=== PATIENT | female | born 1965 | race Caucasian/White ===

== ENCOUNTER 2019-05-01 14:20 | Inpatient (IN) | payer OTHER ==
--- NOTE | 2019-05-01 14:31 | PDOC ---
Rapid Medical Evaluation Chief Complaint: Chronic pain Time Seen by Provider: 05/01/19 14:27 Medical Evaluation: 05/01/19 14:27 I have performed a brief in-person evaluation of this patient. The patient presents with a chief complaint of:foot pain and neurologist wishes MRI/ to r/o MS exacerbation Pertinent physical exam findings: amb with no limp I have ordered the following: nothing The patient will proceed to the ED for further evaluation.
--- NOTE | 2019-05-01 15:57 | PDOC ---
History of Present Illness <Santy Farooq - Last Filed: 05/01/19 17:24> - General History Source: Patient Exam Limitations: No Limitations - History of Present Illness Initial Comments: 05/01/19 15:53 53-year-old female sent over by neurologist Dr. Mirza who recommended patient go to [facility] ER for further evaluation of increasing numbness and paresthesia to bilateral feet radiating to calves and knees. patient refused and decided to come to [facility] emergency room although her MS physician and other specialists are at [facility]. Patient states history of MS, migraines, depression, fibromyalgia, RLS, and antiphospholipid antibodies. Patient was recommended to receive an MRI of the brain, cervical column and thoracic spine with and without gadolinium. Patient denies difficulty breathing, chest pain, shortness of breath, headache, dizziness or visual changes. Timing/Duration: other Severity: mild, moderate Associated Symptoms: reports: weakness <Chasity Esteban - Last Filed: 05/02/19 11:59> - General Chief Complaint: Chronic pain Stated Complaint: SENT BY PCP/FOOT PAIN Time Seen by Provider: 05/01/19 14:27 Past History <Santy Farooq - Last Filed: 05/01/19 17:24> - Travel Traveled outside of the country in the last 30 days: No Close contact w/someone who was outside of country & ill: No - Past Medical History COPD: No GI Disorders: Yes (IBS) Other medical history: JONAH - Psycho Social/Smoking Cessation Hx Smoking History: Never smoked Patient Lives Alone: No Lives with/in: spouse/SO <Chasity Esteban - Last Filed: 05/02/19 11:59> - Past Medical History Allergies/Adverse Reactions: Allergies Allergy/AdvReac Type Severity Reaction Status Date / Time codeine AdvReac Verified 05/01/19 14:31 Home Medications: Ambulatory Orders Vilazodone Hydrochloride [Viibryd] 20 mg PO DAILY 05/01/19 Review of Systems - Review of Systems Able to Perform ROS?: No Is the patient limited Telugu proficient: No Constitutional: No: Symptoms Reported HEENTM: No: Symptoms Reported Respiratory: No: Symptoms reported Cardiac (ROS): No: Symptoms Reported ABD/GI: No: Symptoms Reported : No: Symptoms Reported Musculoskeletal: Yes: Muscle Weakness Neurological: Yes: Numbness, Paresthesia, Weakness Endocrine: No: Symptoms Reported Hematologic/Lymphatic: No: Symptoms Reported <Chaisty Esteban - Last Filed: 05/02/19 11:59> *Physical Exam - Vital Signs Last Vital Signs Temp Pulse Resp BP Pulse Ox 98.2 F 112 H 18 105/69 98 05/01/19 14:26 05/01/19 14:26 05/01/19 14:26 05/01/19 14:26 05/01/19 14:26 <Santy Farooq - Last Filed: 05/01/19 17:24> - Vital Signs Last Vital Signs Temp Pulse Resp BP Pulse Ox 98.2 F 112 H 18 105/69 98 05/01/19 14:26 05/01/19 14:26 05/01/19 14:26 05/01/19 14:26 05/01/19 14:26 - Physical Exam General Appearance: Yes: Nourished, Appropriately Dressed. No: Apparent Distress Neck: positive: Supple Respiratory/Chest: positive: Lungs Clear, Normal Breath Sounds. negative: Respiratory Distress, Accessory Muscle Use Cardiovascular: positive: Regular Rhythm, Regular Rate (Rate 92 on portable monitor). negative: Murmur Gastrointestinal/Abdominal: positive: Soft. negative: Tenderness Extremity: positive: Normal Inspection Integumentary: positive: Normal Color, Moist Neurologic: positive: Motor Strength 5/5 (Ambulatory without limp) <Chasity Esteban - Last Filed: 05/02/19 11:59> Heart Score/ECG Review - ECG Impressions Comment:: 05/01/19 17:24 Twelve-lead EKG was performed and reviewed by me. There is normal sinus rhythm with a normal rate. Rate of 75 The axis is normal. The intervals are normal. There is normal R wave progression There are no ST or T wave abnormalities. Impression: Normal twelve-lead EKG <Santy Farooq - Last Filed: 05/01/19 17:24> ED Treatment Course - LABORATORY CBC & Chemistry Diagram: 05/01/19 16:24 05/01/19 16:24 - ADDITIONAL ORDERS Additional order review: Laboratory Results 05/01/19 05/01/19 16:24 16:24 Sodium 142 Potassium 4.4 Chloride 110 H Carbon Dioxide 25 Anion Gap 7 L BUN 12.0 Creatinine 0.5 L Est GFR (CKD-EPI)AfAm 126.28 Est GFR (CKD-EPI)NonAf 108.96 Random Glucose 102 Calcium 8.9 Magnesium 2.1 Total Bilirubin 0.3 AST 23 ALT 22 Alkaline Phosphatase 79 Total Protein 6.8 Albumin 3.7 05/01/19 16:24 RBC 4.44 MCV 97.1 H MCHC 34.5 RDW 13.2 MPV 7.9 Neutrophils % 50.7 Lymphocytes % 41.9 H Monocytes % 6.2 Eosinophils % 0.5 Basophils % 0.7 <Snaty Farooq - Last Filed: 05/01/19 17:24> - LABORATORY CBC & Chemistry Diagram: 05/02/19 05:55 05/02/19 05:55 <Chasity Esteban - Last Filed: 05/02/19 11:59> Medical Decision Making - Medical Decision Making The patient was seen and evaluated in conjunction with GABRIELLE Esteban under my direct supervision, ancillary studies were reviewed. I independently interviewed and evaluated the patient and I agree with the plan as outlined by GABRIELLE Esteban. <Santy Farooq - Last Filed: 05/01/19 17:24> - Medical Decision Making 05/01/19 15:56 Chief complaint: Weakness and paresthesia to her feet rating to her knees. Patient states history of MS patient followed at [facility] but decided to come to this ED versus recommended [facility] by her neurologist exam: Ambulatory without limp vital signs stable plan: Labs IV and will order MRI as per neurology request <Chasity Esteban - Last Filed: 05/02/19 11:59> Discharge <Santy Farooq - Last Filed: 05/01/19 17:24> - Discharge Information Problems reviewed: Yes <Chasity Esteban - Last Filed: 05/02/19 11:59> - Discharge Information Clinical Impression/Diagnosis: Bilateral leg paresthesia Condition: Stable
--- NOTE | 2019-05-01 16:33 | PDOC ---
*Physical Exam - Vital Signs Last Vital Signs Temp Pulse Resp BP Pulse Ox 98.2 F 112 H 18 105/69 98 05/01/19 14:26 05/01/19 14:26 05/01/19 14:26 05/01/19 14:26 05/01/19 14:26 - Physical Exam 05/01/19 16:32 Sign-out received from outgoing ER provider Eulalia. Pt interviewed and examined. Ancillary studies reviewed. Awaiting EKG, labs, MRI results. 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 Per medical technologist clinical, patient cannot have thoracic spine MRI done until tomorrow given amount of contrast administered. Patient's PCP is Dr. Rosio Briceño, will admit to hospitalist. 05/01/19 20:53 Spoke with admitting resident Rashmi, patient accepted for inpatient admission. ED Treatment Course - LABORATORY CBC & Chemistry Diagram: 05/01/19 16:24 05/01/19 16:24 Discharge - Discharge Information Problems reviewed: Yes Clinical Impression/Diagnosis: Bilateral leg paresthesia Condition: Stable - Admission Yes - Follow up/Referral Referrals: Rosio Briceño MD [Primary Care Provider] - - Patient Discharge Instructions - Post Discharge Activity
[2019-05-01 16:48] LABS: BASO % 0.7 % (0-2.0); EOS % 0.5 % (0-4.5); HEMATOCRIT 43.1 % (32.4-45.2); HEMOGLOBIN 14.9 GM/dL (10.7-15.3); LYMPH % 41.9 % (8-40); MCH 33.5 pg (25.7-33.7); MCHC 34.5 g/dl (32.0-36.0); MEAN CELL VOLUME 97.1 fl (80-96); MEAN PLT VOLUME 7.9 fl (7.5-11.1); MONO % 6.2 % (3.8-10.2); NEUT % 50.7 % (42.8-82.8); PLATELET COUNT 267 K/MM3 (134-434); RBC 4.44 M/mm3 (3.60-5.2); RDW 13.2 % (11.6-15.6); WHITE BLOOD COUNT 6.9 K/mm3 (4.0-10.0)
[2019-05-01 17:12] LABS: ALBUMIN 3.7 g/dl (3.4-5.0); BILIRUBIN,TOTAL 0.3 mg/dL (0.2-1); CALCIUM 8.9 mg/dL (8.5-10.1); CREATININE 0.5 mg/dL (0.55-1.3); POTASSIUM 4.4 mmol/L (3.5-5.1); TOT PROT 6.8 g/dl (6.4-8.2)
--- NOTE | 2019-05-01 20:49 | PN ---
Teaching Attending Note Name of Resident: Eloise Meadows ATTENDING PHYSICIAN STATEMENT I saw and evaluated the patient. I reviewed the resident's note and discussed the case with the resident. I agree with the resident's findings and plan as documented. SUBJECTIVE: Patient is a 53-year-old woman with a PMH of Multiple sclerosis, Migraines, Tobacco use, Depression, Fibromyalgia, RLS, and antiphospholipid antibodies, sent by her neurologist Dr. Mirza to [facility] ER for further evaluation of increasing numbness and paresthesia to bilateral feet radiating to calves and knees. But patient refused and decided to come to [facility] ER although her MS physician and other specialists are at [facility]. Patient was recommended to receive an MRI of the brain, cervical column and thoracic spine with and without gadolinium. Patient denies difficulty breathing , chest pain, shortness of breath, headache, dizziness, fever, chills, nausea, vomiting or visual changes. No recent travels or sick contacts. Denies alcohol, tobacco or illicit drug use. OBJECTIVE: Alert Vital Signs Period Temp Pulse Resp BP Sys/Maciel Pulse Ox Last 24 Hr 98.2 F 112 18 105/69 98 HEENT: No Jaundice, eye redness or discharge, PERRLA, EOMI. Normocephalic, atraumatic. External ears are normal and hearing is grossly intact. No nasal discharge. Neck: Supple, nontender. No palpable adenopathy or thyromegaly. No JVD Chest: Good effort. Clear to auscultation and percussion. Heart: Regular. No S3, rub or murmur Abdomen: Not distended, soft, nontender and no HSM. No rebound or guarding. Normal bowel sounds. Ext: Peripheral pulses intact. No leg edema. Skin: Warm and dry. No petechiae, rash or ecchymosis. Neuro: Alert. Oriented x3. CN 2-12 grossly intact. Sensation diminished in bilateral lower leg area; DTR are symmetric. Psych: Appropriate mood and affect. Good insight. Abnormal Lab Results 05/01/19 05/01/19 16:24 16:24 MCV 97.1 H Lymphocytes % 41.9 H Chloride 110 H Anion Gap 7 L Creatinine 0.5 L ASSESSMENT AND PLAN: 1. Exacerbation of Multiple Sclerosis - Official report of Head and C-spine MRI pending. Urinalysis and CXR pending. Will consult Neurology and contact her PCP/ Neurologist during the day to obtain her medical records - including details of the original MS diagnosis. Will continue comprehensive care for all of patient s comorbid conditions. 2. Tobacco Use Counseled on risks associated with tobacco use. We will provide patient all the necessary assistance to facilitate smoking cessation and prescribe Nicotine patch. 3. DVT prophylaxis - Lovenox 40 mg SQ q 24 hours. 4. Advance directives - Full code
--- NOTE | 2019-05-01 21:29 | HP ---
CHIEF COMPLAINT: BL LE weakness and numbness PCP: Dr. Rosio Briceño Neurosurgery: Dr. Mirza HISTORY OF PRESENT ILLNESS: Patient is a 53 year old female with PMH of MS, migraines, depression, fibromyalgia, RLS, IBS who presents with BL LE neuropathy over the past several weeks. She first began having intermittent numbness and tingling (described as pins and needles) which has now progressed to being constant. Symptoms start in her feet and radiate up to mid-calf. She denies any difficulty with movement or ambulation. Pt denies any other neurologic symptoms. No paresthesias in neck or back, vision changes, fatigue heat sensitivity, dizziness or vertigo, urinary incontinence. Pt was first diagnosed with MS 13 years ago. Flare ups have always consisted of paresthesias, last flare up was 9 years ago. Has never had any opthalmologic issues. She was initially on neurontin and other medications (that she forgets the names of) but has not taken these medications for many year as her MS has been stable. Pt sees Dr. Mirza (neurosurgery) regularly and had an appointment with him today regarding these new symptoms. He sent her to the ED to receive an MRI of brain, c-spine, and thoracic-spine. He requested she go to [facility] (as all of pts doctors are located there), however pt refused and preferred to come to [facility]. In the ED, she received an MRI w/ and w/o gadolineum of her brain and c-spine; however, per oxygen equipment technician, pt cannot have thoracic spine M RI until tomorrow given the amount of contrast that has already been administered. Recent Travel: denies PAST MEDICAL HISTORY: As per HPI PAST SURGICAL HISTORY: Laproscopies for endometriosis Social History: Smokin/2 ppd x8 years Alcohol: recreationally Drugs: denies Allergies codeine Adverse Reaction (Verified 05/01/19 14:31) HOME MEDICATIONS: REVIEW OF SYSTEMS CONSTITUTIONAL: Absent: fever, chills, diaphoresis, generalized weakness, malaise, loss of appetite, weight change HEENT: Absent: rhinorrhea, nasal congestion, throat pain, throat swelling, difficulty swallowing, mouth swelling, ear pain, eye pain, visual changes CARDIOVASCULAR: Absent: chest pain, syncope, palpitations, irregular heart rate, lightheadedness , peripheral edema RESPIRATORY: Absent: cough, shortness of breath, dyspnea with exertion, orthopnea, wheezing, stridor, hemoptysis GASTROINTESTINAL: Absent: abdominal pain, abdominal distension, nausea, vomiting, diarrhea, constipation, melena, hematochezia GENITOURINARY: Absent: dysuria, frequency, urgency, hesitancy, hematuria, flank pain, genital pain MUSCULOSKELETAL: Absent: myalgia, arthralgia, joint swelling, back pain, neck pain SKIN: Absent: rash, itching, pallor HEMATOLOGIC/IMMUNOLOGIC: Absent: easy bleeding, easy bruising, lymphadenopathy, frequent infections ENDOCRINE: Absent: unexplained weight gain, unexplained weight loss, heat intolerance, cold intolerance NEUROLOGIC: focal weakness or paresthesias Absent: headache, dizziness, unsteady gait, seizure, mental status changes, bladder or bowel incontinence PSYCHIATRIC: Absent: anxiety, depression, suicidal or homicidal ideation, hallucinations. PHYSICAL EXAMINATION Vital Signs - 24 hr 05/01/19 14:26 Temperature 98.2 F Pulse Rate 112 H Respiratory 18 Rate Blood Pressure 105/69 O2 Sat by Pulse 98 Oximetry (%) GENERAL: Awake, alert, and fully oriented, in no acute distress. HEAD: Normal with no signs of trauma. EYES: Pupils equal, round and reactive to light, no APDs, extraocular movements intact, sclera anicteric, conjunctiva clear. No lid lag. Normal vision, no visual field defects. On ophthalmoscope examination, did not appreciate any papilledema or hyperemia (good disck margins), no hemorrhages or signs of inflammation. EARS, NOSE, THROAT: Ears normal, nares patent, oropharynx clear without exudates. Moist mucous membranes. NECK: Normal range of motion, supple without lymphadenopathy, JVD, or masses. LUNGS: Breath sounds equal, clear to auscultation bilaterally. No wheezes, and no crackles. No accessory muscle use. HEART: Regular rate and rhythm, normal S1 and S2 without murmur, rub or gallop. ABDOMEN: Soft, nontender, not distended, normoactive bowel sounds, no guarding, no rebound, no masses. No hepatomegaly or splenomegaly. MUSCULOSKELETAL: Normal range of motion at all joints. No bony deformities or tenderness. No CVA tenderness. UPPER EXTREMITIES: 2+ pulses, warm, well-perfused. No cyanosis. No clubbing. No peripheral edema. LOWER EXTREMITIES: 2+ pulses, warm, well-perfused. No calf tenderness. No peripheral edema. NEUROLOGICAL: Cranial nerves II-XII intact. Normal speech. Normal gait. Tingling sensation exacerbated by touch on BL feet. Decreased sensation distal to mid-calf. 5/5 motor PSYCHIATRIC: Cooperative. Good eye contact. Appropriate mood and affect. SKIN: Warm, dry, normal turgor, no rashes or lesions noted, normal capillary refill. Laboratory Results - last 24 hr 05/01/19 16:24 05/01/19 16:24 ASSESSMENT/PLAN: Patient is a 53 year old female with PMH of MS, migraines, depression, fibromyalgia, RLS, IBS who presents with BL LE neuropathy over the past several weeks. #Multiple sclerosis exacerbation MRI brain: No visible demyelinating plaques, no acute intracranial pathology MRI c-spine: mod degenerative disc disease C5-C7 w/spondylosis. BL neural outlet encroachment at C5-6. No significant spinal stenosis. No abnormal signals. F/u thoracic and lumbar MRI 24 hours post brain and c-spine imaging Neurology consultation (Dr. Strong) placed Hold of IV steroids at this time as preliminary MRI showed no evidence of MS. Will f/u thoracic/lumbar #Depression Cont home meds: vilazodone 20mg daily #FEN No standing fluids Regular diet #DVT ppx Heparin sq #Dispo Monitor in med-surg Visit type - Emergency Visit Emergency Visit: Yes ED Registration Date: 05/01/19 Care time: The patient presented to the Emergency Department on the above date and was hospitalized for further evaluation of their emergent condition. - New Patient This patient is new to me today: Yes Date on this admission: 05/04/19 - Critical Care Critical Care patient: No ATTENDING PHYSICIAN STATEMENT I saw and evaluated the patient. I reviewed the resident's note and discussed the case with the resident. I agree with the resident's findings and plan as documented. SUBJECTIVE: OBJECTIVE: ASSESSMENT AND PLAN:
[2019-05-02] MEDS ORDERED: HEPARIN NA (PORCINE) 5,000 UNITS/ML 1ML VIAL ONE (05:39)
[2019-05-02] MEDS: HEPARIN NA (PORCINE) 5,000 UNITS/ML 1ML VIAL SQ SCH ×3 (05:42→21:27)
[2019-05-02 06:09] LABS: BASO % 0.9 % (0-2.0); EOS % 0.5 % (0-4.5); HEMATOCRIT 39.7 % (32.4-45.2); HEMOGLOBIN 13.7 GM/dL (10.7-15.3); LYMPH % 51.3 % (8-40); MCH 33.1 pg (25.7-33.7); MCHC 34.4 g/dl (32.0-36.0); MEAN CELL VOLUME 96.3 fl (80-96); MEAN PLT VOLUME 7.2 fl (7.5-11.1); MONO % 8.9 % (3.8-10.2); NEUT % 38.4 % (42.8-82.8); PLATELET COUNT 226 K/MM3 (134-434); RBC 4.13 M/mm3 (3.60-5.2); RDW 12.9 % (11.6-15.6); WHITE BLOOD COUNT 4.8 K/mm3 (4.0-10.0)
[2019-05-02 06:36] LABS: ALBUMIN 3.3 g/dl (3.4-5.0); BILIRUBIN,TOTAL 0.4 mg/dL (0.2-1); CALCIUM 8.7 mg/dL (8.5-10.1); CREATININE 0.6 mg/dL (0.55-1.3); TOT PROT 5.9 g/dl (6.4-8.2)
[2019-05-02] MEDS: VILAZODONE HYDROCHLORIDE 20 MG TABLET PO SCH (10:14)
[2019-05-02] MEDS: NICOTINE 14 MG/24 HOURS TOPICAL PATCH TD SCH (10:14)
--- NOTE | 2019-05-02 10:52 | EKG ---
Test Reason : Blood Pressure : / mmHG Vent. Rate : 075 BPM Atrial Rate : 075 BPM P-R Int : 156 ms QRS Dur : 080 ms QT Int : 394 ms P-R-T Axes : 063 082 079 degrees QTc Int : 439 ms NORMAL SINUS RHYTHM NO PREVIOUS ECGS AVAILABLE Confirmed by RAYO MATA MD ([id number]) on 05/02/2019 10:52:00 AM Referred By: Confirmed By:RAYO MATA MD
[2019-05-02] MEDS: MICONAZOLE NITRATE 14 GM/TUBE TUBE TP SCH ×2 (11:16→22:50)
[2019-05-02] MEDS ORDERED: GABAPENTIN 100 MG CAPSULE (FP) ONE (11:18)
[2019-05-02] MEDS: GABAPENTIN 300 MG CAPSULE (FP) PO SCH ×2 (11:22→21:28)
[2019-05-02] MEDS: CYANOCOBALAMIN 1,000 MCG TABLET (FP) PO SCH (12:53)
--- NOTE | 2019-05-02 14:22 | PN ---
Physical Exam: SUBJECTIVE: Patient seen and examined at the bedside. Patient endorses numbness and tingling bilaterally up to the ankles with sensation of pins and needles and sensation of vibration. Patient denies any weakness symptoms. Denies visual deficits, photophobia, phonophobia. Endorses migraine headache that is comparable to her usual headaches. Denies cp, sob, abd pain, n/v/c/d, dizziness , lightheadedness, dysuria, hematuria. Denies hx of diabetes, tick bite, recent illnesses. Endorses good appetite. Patient notes a hx of damage to R iris. Stated that previous MS exacerbation included hemiparesis to the L side of the body without involvement of the face. OBJECTIVE: Vital Signs Period Temp Pulse Resp BP Sys/Maciel Pulse Ox Last 24 Hr 98.2 F-98.6 F 70-112 18-18 105-122/69-78 96-98 GENERAL: The patient is awake, alert, and fully oriented, in mild acute distress. HEAD: Normal with no signs of trauma. EYES: extraocular movements intact, sclera anicteric, conjunctiva clear. Noted pupillary size discrepancy, R eye 2mm, L eye 5mm, both eyes reactive to light and accommodation. ENT: Oropharynx clear without exudates, moist mucous membranes. NECK: Trachea midline, full range of motion, supple. LUNGS: Breath sounds equal, clear to auscultation bilaterally, no wheezes, no crackles, no accessory muscle use. HEART: Regular rate and rhythm, S1, S2 without murmur, rub. ABDOMEN: Soft, nontender, nondistended, normoactive bowel sounds, no guarding, no rebound, no masses. EXTREMITIES: 2+ pulses, warm, well-perfused, no edema. NEUROLOGICAL: Cranial nerves II through XII grossly intact. 4/5 muscle strength on the LUE, all others 5/5. Sensory decreased on bilateral LUE below the ankles to gross touch and pinprick. Sensory otherwise intact to gross touch and pin prick. FTN and HTS intact. PSYCH: Normal mood, normal affect. SKIN: Warm, dry, normal turgor, no rashes or lesions noted. Laboratory Results - last 24 hr 05/01/19 05/01/19 05/01/19 16:24 16:24 16:24 WBC 6.9 RBC 4.44 Hgb 14.9 Hct 43.1 MCV 97.1 H MCH 33.5 MCHC 34.5 RDW 13.2 Plt Count 267 MPV 7.9 Absolute Neuts (auto) 3.5 Neutrophils % 50.7 Lymphocytes % 41.9 H Monocytes % 6.2 Eosinophils % 0.5 Basophils % 0.7 Nucleated RBC % 0 Sodium 142 Potassium 4.4 Chloride 110 H Carbon Dioxide 25 Anion Gap 7 L BUN 12.0 Creatinine 0.5 L Est GFR (CKD-EPI)AfAm 126.28 Est GFR (CKD-EPI)NonAf 108.96 Random Glucose 102 Hemoglobin A1c % Calcium 8.9 Magnesium 2.1 Total Bilirubin 0.3 AST 23 ALT 22 Alkaline Phosphatase 79 Total Protein 6.8 Albumin 3.7 Vitamin B12 TSH 05/02/19 05/02/19 05/02/19 05:55 05:55 05:55 WBC 4.8 RBC 4.13 Hgb 13.7 Hct 39.7 MCV 96.3 H MCH 33.1 MCHC 34.4 RDW 12.9 Plt Count 226 MPV 7.2 L Absolute Neuts (auto) 1.9 Neutrophils % 38.4 L D Lymphocytes % 51.3 H D Monocytes % 8.9 Eosinophils % 0.5 Basophils % 0.9 Nucleated RBC % 0 Sodium 143 Potassium 4.0 Chloride 112 H Carbon Dioxide 26 Anion Gap 5 L BUN 14.0 Creatinine 0.6 Est GFR (CKD-EPI)AfAm 118.93 Est GFR (CKD-EPI)NonAf 102.61 Random Glucose 98 Hemoglobin A1c % 5.0 Calcium 8.7 Magnesium Total Bilirubin 0.4 AST 13 L ALT 15 Alkaline Phosphatase 68 Total Protein 5.9 L Albumin 3.3 L Vitamin B12 329 TSH 0.80 Active Medications Generic Name Dose Route Start Last Admin Trade Name Freq PRN Reason Stop Dose Admin Cyanocobalamin 1,000 mcg 05/02/19 11:00 05/02/19 12:53 Vitamin B12 - PO 1,000 mcg DAILY CAROLINE Administration Gabapentin 300 mg 05/02/19 11:00 05/02/19 11:22 Neurontin - PO 300 mg BID CAROLINE Administration Heparin Sodium (Porcine) 5,000 unit 05/02/19 06:00 05/02/19 05:42 Heparin - SQ 5,000 unit TID CAROLINE Administration Miconazole Nitrate 1 applic 05/02/19 10:00 05/02/19 11:16 Monistat Topical Cream - TP Not Given BID [facility] Nicotine 14 mg 05/02/19 10:00 05/02/19 10:14 Nicoderm Patch - TD 14 mg DAILY CAROLINE Administration Vilazodone HCl 20 mg 05/02/19 10:00 05/02/19 10:14 Viibryd - PO 20 mg DAILY CAROLINE Administration ASSESSMENT/PLAN: Samantha Colindres is a 53 year old female with a past medical history of Multiple sclerosis, migraines, depression, fibromyalgia, RLS, IBS who presents with BL LE neuropathy over the past several weeks. LE numbness and tingling secondary to MS exacerbation vs peripheral neuropathy from questionable source - has history of MS and last exacerbation was 9 years prior, not currently on maintenance medications, sent over by neurologist for MRI, hx of lesion in the thoracic spine - MRI brain: No visible demyelinating plaques, no acute intracranial pathology - MRI c-spine: mod degenerative disc disease C5-C7 w/spondylosis. BL neural outlet encroachment at C5-6. No significant spinal stenosis. No abnormal signals. - Thoracic and lumbar MRI 24 hours post brain and c-spine imaging due to necessity of washout of contrast to ensure adequate study - Neurology consultation, recs appreciated - holding steroids in the uncertainty of MS exacerbation diagnosis - TSH, A1c within normal limits - B12 low normal, supplementation initiated - gabapentin 300mg bid Depression - home vilazodone 20mg daily Vaginal Yeast Infection - miconazole Tobacco Abuse - nicotine patch replacement - counseled on cessation FEN - No standing fluids - continue to monitor electrolytes and replete as necessary - Regular diet DVT ppx - Heparin 5000 units sq tid Dispo - continue to monitor on med-surg Visit type - Emergency Visit Emergency Visit: Yes ED Registration Date: 05/01/19 Care time: The patient presented to the Emergency Department on the above date and was hospitalized for further evaluation of their emergent condition. - New Patient This patient is new to me today: Yes Date on this admission: 05/02/19 - Critical Care Critical Care patient: No
--- NOTE | 2019-05-02 14:47 | CON.NEURO ---
Consult - Smoking History Smoking history: Never smoked Home Medications - Allergies Allergies/Adverse Reactions: Allergies Allergy/AdvReac Type Severity Reaction Status Date / Time codeine AdvReac Verified 05/01/19 14:31 - Home Medications Home Medications: Ambulatory Orders Vilazodone Hydrochloride [Viibryd] 20 mg PO DAILY 05/01/19 Physical Exam-Neuro Vital Signs: Vital Signs Temperature 98.6 F 05/02/19 02:48 Pulse Rate 74 05/02/19 07:05 Respiratory Rate 18 05/02/19 07:05 Blood Pressure 115/71 05/02/19 07:05 O2 Sat by Pulse Oximetry (%) 96 05/02/19 07:05 Labs: CBC, BMP 05/02/19 05:55 05/02/19 05:55 Assessment/Plan cc Tingling and numbness IN her feet and ankle for past two weeks HPI 53 year old female history of MS, Migrianes, Depression, Fibromyalgia, IBS. Patient is being seen by Dr Kaminski and sent to ed for MRI of brain, c spine, t and l spine. Patient denies any bowel or bladder symptoms, no back pain. Patient was diagnosed with MS 13 years ago , and she did have spinal tap . Patient was never been on any disease modifying agent. She was started on gabapentin. PAST SURGICAL HISTORY: Laproscopies for endometriosis Social History: Smokin/2 ppd x8 years Alcohol: recreationally Drugs: denies Allergies codeine Adverse Reaction (Verified 05/01/19 14:31) Medication Vilazodone for depression ROS,FH,SH reviewed in chart NEUROLOGICAL EXAMINATION Alert oriented x 3, speech is normal, neck is supple, vss eomi, pupils reactive no face asymmetry moving all ext there is normal reflex in ankle and knee she is able to walk around Sensory dysthesia in both leg below ankle mri of brain unremarkable, no evidence of lesion mri of c spine showed djd Assessment/Plan 1. Bilateral ankle and feet tingling and vibration sensation for two weeks, pateint has very minimal sensory dysthesia, rest of exam is normal. Clinically unlikley to be MS . plan: spoke to patient ,she wishes to get mri of T and L spine, as per patient she had lesion in T spine in past. We would do mri of T and L spine 2. Hold steroid - continue Neurontin and b12 Supplementation Thnaking you so much Jaime Strong MD
[2019-05-02 15:27] VITALS: BMI 20.5
--- NOTE | 2019-05-02 17:38 | PN ---
Teaching Attending Note Name of Resident: [place] ATTENDING PHYSICIAN STATEMENT I saw and evaluated the patient. I reviewed the resident's note and discussed the case with the resident. I agree with the resident's findings and plan as documented. SUBJECTIVE: Complains of bilateral foot tingling/"pins and needles" relatively acute onset over a week ago OBJECTIVE: Afebrile, Hemodynamically Stable. Last Vital Signs Temp Pulse Resp BP Pulse Ox 98.0 F 69 20 115/70 97 05/02/19 15:07 05/02/19 15:07 05/02/19 15:07 05/02/19 15:07 05/02/19 15:36 HEENT - S1, S2, RRR Heart - S1, S2, RRR Lungs - clear to auscultation Abdomen - Soft, non-tender. Bowel Sounds normal. Extremities - no edema, no calf tenderness. Neuro - AAO x 3. Pupils asymmetric (chronic). Tone/Power normal all extremities. Laboratory Results - last 24 hr 05/02/19 05/02/19 05/02/19 05:55 05:55 05:55 WBC 4.8 RBC 4.13 Hgb 13.7 Hct 39.7 MCV 96.3 H MCH 33.1 MCHC 34.4 RDW 12.9 Plt Count 226 MPV 7.2 L Absolute Neuts (auto) 1.9 Neutrophils % 38.4 L D Lymphocytes % 51.3 H D Monocytes % 8.9 Eosinophils % 0.5 Basophils % 0.9 Nucleated RBC % 0 Sodium 143 Potassium 4.0 Chloride 112 H Carbon Dioxide 26 Anion Gap 5 L BUN 14.0 Creatinine 0.6 Est GFR (CKD-EPI)AfAm 118.93 Est GFR (CKD-EPI)NonAf 102.61 Random Glucose 98 Hemoglobin A1c % 5.0 Calcium 8.7 Total Bilirubin 0.4 AST 13 L ALT 15 Alkaline Phosphatase 68 Total Protein 5.9 L Albumin 3.3 L Vitamin B12 329 TSH 0.80 Current Medications Generic Name Dose Route Start Last Admin Trade Name Freq PRN Reason Stop Dose Admin Cyanocobalamin 1,000 mcg 05/02/19 11:00 05/02/19 12:53 Vitamin B12 - PO 1,000 mcg DAILY CAROLINE Administration Gabapentin 300 mg 05/02/19 11:00 05/02/19 11:22 Neurontin - PO 300 mg BID CAROLINE Administration Heparin Sodium (Porcine) 5,000 unit 05/02/19 06:00 05/02/19 05:42 Heparin - SQ 5,000 unit TID CAROLINE Administration Miconazole Nitrate 1 applic 05/02/19 10:00 05/02/19 11:16 Monistat Topical Cream - TP Not Given BID [facility] Nicotine 14 mg 05/02/19 10:00 05/02/19 10:14 Nicoderm Patch - TD 14 mg DAILY CAROLINE Administration Vilazodone HCl 20 mg 05/02/19 10:00 05/02/19 10:14 Viibryd - PO 20 mg DAILY CAROLINE Administration Home Medications Medication Instructions Recorded Vilazodone Hydrochloride [Viibryd] 20 mg PO DAILY 05/01/19 ASSESSMENT/PLAN: 53 year old female with history of MS, Migraines, Tobacco use, Depression, Fibromyalgia, RLS, Antiphospholipid Syndrome, referred to the ED by her Neurologist for further evaluation for worsening paresthesia bilateral feet to ankles. No weakness. 1. Neuroapthy - appears to be bilateral, symmetric peripheral neuropathy No evidence of MS exacerbation MRI Brain/C-Spine - no intracranial lesions, DJD spine. Evaluated by Neuro - recommend Neurontin and further spinal imaging Awaiting 24 hours before administering further contrast for T and L spine MRI. Will hydrate overnight. B12 levels borderline (329) - will start supplementation TSH 0.80 No Hx DM 2 - A1C 5.5 2. Depression/Fibromyalgia - on Vilazodone. DVT Px - on Heparin SQ
[2019-05-02] MEDS: SODIUM CHLORIDE 1,000 ML IV SCH (18:24)
[2019-05-03] MEDS: SODIUM CHLORIDE 1,000 ML IV SCH ×2 (06:18→18:55)
[2019-05-03] MEDS: HEPARIN NA (PORCINE) 5,000 UNITS/ML 1ML VIAL SQ SCH ×2 (06:19→14:20)
[2019-05-03] MEDS ORDERED: PT OWN MED DRAWER 7, Y5N ONE (09:55)
[2019-05-03] MEDS: VILAZODONE HYDROCHLORIDE 20 MG TABLET PO SCH (09:57)
[2019-05-03] MEDS: NICOTINE 14 MG/24 HOURS TOPICAL PATCH TD SCH (09:57)
[2019-05-03] MEDS: GABAPENTIN 300 MG CAPSULE (FP) PO SCH ×2 (09:57→20:27)
[2019-05-03] MEDS: MICONAZOLE NITRATE 14 GM/TUBE TUBE TP SCH (09:57)
[2019-05-03] MEDS: CYANOCOBALAMIN 1,000 MCG TABLET (FP) PO SCH (09:57)
--- NOTE | 2019-05-03 11:09 | PN ---
Progress Note (short form) - Note Progress Note: 53 year old female history of MS, Migrianes, Depression, Fibromyalgia, IBS. Patient is being seen by Dr Kaminski and sent to ed for MRI of brain, c spine, t and l spine. Patient denies any bowel or bladder symptoms, no back pain. Patient was diagnosed with MS 13 years ago , and she did have spinal tap . Patient was never been on any disease modifying agent. She was started on gabapentin. no new symptoms, she has been started on b12. NEUROLOGICAL EXAMINATION Alert oriented x 3, speech is normal, neck is supple, vss eomi, pupils reactive no face asymmetry moving all ext there is normal reflex in ankle and knee she is able to walk around Sensory dysthesia in both leg below ankle mri of brain unremarkable, no evidence of lesion mri of c spine showed djd mri of T/L spine pending Assessment/Plan 1. Bilateral ankle and feet tingling and vibration sensation for two weeks, pateint has very minimal sensory dysthesia, rest of exam is normal. Clinically unlikley to be MS . plan: mri of T/L spine pending 2. Hold steroid - continue Neurontin and b12 Supplementation Thnaking you so much Jaime Strong MD
--- NOTE | 2019-05-03 12:02 | PN ---
Teaching Attending Note Name of Resident: Alize Tucker ATTENDING PHYSICIAN STATEMENT I saw and evaluated the patient. I reviewed the resident's note and discussed the case with the resident. I agree with the resident's findings and plan as documented. SUBJECTIVE: Complains of bilateral foot tingling/vibration relatively acute onset over a week ago OBJECTIVE: Afebrile, Hemodynamically Stable. Last Vital Signs Temp Pulse Resp BP Pulse Ox 97.9 F 65 18 106/62 97 05/03/19 10:00 05/03/19 10:00 05/03/19 10:00 05/03/19 10:00 05/03/19 09:00 HEENT - Atraumatic, normocephalic. Heart - S1, S2, RRR Lungs - clear to auscultation Abdomen - Soft, non-tender. Bowel Sounds normal. Extremities - no edema, no calf tenderness. Neuro - AAO x 3. Pupils asymmetric (chronic). Tone/Power normal all extremities. Current Medications Generic Name Dose Route Start Last Admin Trade Name Beka PRN Reason Stop Dose Admin Cyanocobalamin 1,000 mcg 05/02/19 11:00 05/03/19 09:57 Vitamin B12 - PO 1,000 mcg DAILY CAROLINE Administration Gabapentin 300 mg 05/02/19 11:00 05/03/19 09:57 Neurontin - PO 300 mg BID CAROLINE Administration Heparin Sodium (Porcine) 5,000 unit 05/02/19 06:00 05/03/19 06:19 Heparin - SQ 5,000 unit TID CAROLINE Administration Sodium Chloride 1,000 mls @ 100 mls/hr 05/02/19 17:45 05/03/19 06:18 Normal Saline - IV 100 mls/hr ASDIR CAROLINE Administration Miconazole Nitrate 1 applic 05/02/19 10:00 05/03/19 09:57 Monistat Topical Cream - TP Not Given BID CAROLINE Nicotine 14 mg 05/02/19 10:00 05/03/19 09:57 Nicoderm Patch - TD 14 mg DAILY CAROLINE Administration Vilazodone HCl 20 mg 05/02/19 10:00 05/03/19 09:57 Viibryd - PO 20 mg DAILY CAROLINE Administration Home Medications Medication Instructions Recorded Vilazodone Hydrochloride [Viibryd 30 mg PO DAILY 05/01/19 -] Cariprazine HCl [Vraylar] 4.5 mg PO HS 12/20/19 Cyanocobalamin [Vitamin B12 -] 1,000 mcg PO DAILY #30 tablet 05/02/19 Gabapentin [Neurontin -] 300 mg PO BID #60 capsule 05/02/19 clonazePAM [Clonazepam] 1 mg PO DAILY 05/02/19 clonazePAM [Clonazepam] 2 mg PO HS 05/02/19 ASSESSMENT/PLAN: 53 year old female with history of MS, Migraines, Tobacco use, Depression, Fibromyalgia, RLS, ?Antiphospholipid Syndrome, referred to the ED by her Neurologist for further evaluation for worsening paresthesia bilateral feet to ankles. No weakness. 1. Neuroapthy - appears to be bilateral, symmetric peripheral neuropathy No evidence of MS exacerbation MRI Brain/C-Spine - no intracranial lesions, DJD spine. Evaluated by Neuro - recommend Neurontin and further spinal imaging Awaiting T and L spine MRI. Hydrated overnight prior to second contrast load. B12 levels borderline (329) - started on supplementation TSH 0.80 No Hx DM 2 - A1C 5.5 2. Depression/Fibromyalgia - on Vilazodone, Cariprazine, Clonazepam DVT Px - on Heparin SQ If T/L Spine show no acute lesions, she is medically/neurologically clear for discharge with out-patient Neuro follow up.
[2019-05-03 13:28] VITALS: BP 111/62; PULSE 68; TEMP 98.2
--- NOTE | 2019-05-03 17:44 | DS ---
Physical Exam: SUBJECTIVE: Patient seen and examined. No acute events overnight. Denies any changes from prior day. Denies chest pain, SOB, abd pain, fever, chills. OBJECTIVE: Vital Signs Period Temp Pulse Resp BP Sys/Maciel Pulse Ox Last 24 Hr 97.9 F-98.2 F 58-69 18-21 106-122/60-81 97-97 PHYSICAL EXAM GENERAL: The patient is awake, alert, and fully oriented, in mild acute distress. HEAD: Normal with no signs of trauma. EYES: EOMI, PERRL. ENT: Oropharynx clear without exudates, moist mucous membranes. NECK: Trachea midline, full range of motion, supple. LUNGS: Breath sounds equal, clear to auscultation bilaterally, no wheezes, no crackles, no accessory muscle use. HEART: Regular rate and rhythm, S1, S2 without murmur, rub. ABDOMEN: Soft, nontender, nondistended, normoactive bowel sounds EXTREMITIES: 2+ pulses, warm, well-perfused, no edema. NEUROLOGICAL: Sensory decreased on bilateral lower extremities below the ankles to gross touch and pinprick. Sensory otherwise intact to gross touch and pin prick. PSYCH: appropriate mood and affect SKIN: Warm, dry, normal turgor LABS HOSPITAL COURSE: Date of Admission:05/01/19 Date of Discharge: 05/03/19 53 year old female with a past medical history of Multiple sclerosis, migraines , depression, fibromyalgia, RLS, IBS who presents with BL LE neuropathy over the past several weeks. Patient was admitted after she was referred by her neurologist for scans of her brain and spinal cord due to recent history of numbness, tingling, and vibration. Patient had MRI of brain and cervical spine cord done. Seen by Neurology who recommended further imaging. Patient also had MRI of thoracic and lumbar spine. MRI imaging of the brain and cervical, thoracic, and lumbar spinal cord did not show any evidence of Multiple Sclerosis. Patient was started on B12 supplementation due to borderline low B12 levels. Patient continued on her home medications. Medically stable for discharge with Neuro follow up outpatient. Minutes to complete discharge: 36 Discharge Summary Problems reviewed: Yes Reason For Visit: PARESTHESIA OF BOTH LOWER EXTREMITIES Condition: Improved - Instructions Diet, Activity, Other Instructions: You were admitted after your neurologist sent you for scans of your brain and spinal cord due to your recent history of numbness, tingling, and vibration sensation in your feet. You had an MRI of the brain which did not show any new findings. You had an MRI of your spinal cord which did not show any evidence of multiple sclerosis. You were started on a medication to help with the tingling sensation and a Vitamin B12 supplement. You were seen by a neurologist who recommended to continue gabapentin and the supplement and to follow up with your neurologist after discharge. MEDICATIONS Please start to take gabapentin 300mg twice a day. Please start to take Vitamin B12 1000mcg every day. Continue taking all of your other home medications as prescribed. REFERRALS Please see your primary care doctor, Dr. Rosio Briceño, within 1 week. Please see your neurologist, Dr. Kole Mirza, within 1 week. If you have any symptoms of worsening numbness, tingling, inability to walk, weakness, slurred speech, worsening headaches, visual changes, chest pain, shortness of breath, fevers, or any other general feelings of unwellness, please call 911 or go to your nearest emergency room. Referrals: Jose Mirza MD [Staff Physician] - Rosio Briceño MD [Primary Care Provider] - Disposition: HOME - Home Medications Comprehensive Discharge Medication List: Ambulatory Orders Vilazodone Hydrochloride [Viibryd -] 30 mg PO DAILY 05/01/19 Cariprazine HCl [Vraylar] 4.5 mg PO HS 05/02/19 Cyanocobalamin [Vitamin B12 -] 1,000 mcg PO DAILY #30 tablet 05/02/19 Gabapentin [Neurontin -] 300 mg PO BID #60 capsule 05/02/19 clonazePAM [Clonazepam] 1 mg PO DAILY 05/02/19 clonazePAM [Clonazepam] 2 mg PO HS 05/02/19 This patient is new to me today: Yes Date on this admission: 05/04/19 Emergency Visit: Yes ED Registration Date: 05/01/19 Care time: The patient presented to the Emergency Department on the above date and was hospitalized for further evaluation of their emergent condition. Critical Care patient: No - Discharge Referral Referred to [facility] No ATTENDING PHYSICIAN STATEMENT I saw and evaluated the patient. I reviewed the resident's note and discussed the case with the resident. I agree with the resident's findings and plan as documented. SUBJECTIVE: OBJECTIVE: ASSESSMENT AND PLAN:
== END 2019-05-03 20:45 | disposition home or self-care (01) | DRG 60 ==
LOC: JER 14:20 → JERBED 20:54 → J6S 05-02 15:01
PROVIDERS: ADMIT Internal Medicine
DX: G35 Multiple sclerosis (principal); F32.9 Major depressive disorder, single episode, unspecified; G62.9 Polyneuropathy, unspecified; M79.7 Fibromyalgia; G25.81 Restless legs syndrome
CPT/HCPCS: 36415; 70553-TC; 72156-TC; 72157-TC; 72158-TC; 80053; 82607; 83036; 83735; 84443; 85025; 93005; 93010; 97116-GP; 97161-GP; 99285-25; A9579; J1644; J7030

== ENCOUNTER 2019-07-13 09:34 | Emergency (ER) | payer OTHER ==
[2019-07-13 09:40] VITALS: BMI 19.3
--- NOTE | 2019-07-13 09:54 | PDOC ---
*Physical Exam - Vital Signs Last Vital Signs Temp Pulse Resp BP Pulse Ox 98 F 64 18 122/86 98 07/13/19 09:35 07/13/19 09:35 07/13/19 09:35 07/13/19 09:35 07/13/19 09:35 ED Treatment Course - LABORATORY CBC & Chemistry Diagram: 07/13/19 10:05 07/13/19 11:50 Medical Decision Making - Medical Decision Making 07/13/19 09:53 Patient seen as pre-attending with Dr. Ryan (PGY-1) and Dr. Ring (Attending) 54 y/o female with a PMH of MS, IBS, Intersitial Cystitis, Restless Leg Syndrome , Antiphospholipid Antibody Syndrome here with 3 week h/o worsening lower abdominal pain. Tolerating PO intake but notes decreased appetite secondary to symptoms. No fevers/chills. Last BM was this morning and was normal. Was receiving monthly bladder treatments at [facility] however stopped doing treatments in January because her symptoms resolved. PE significant for suprapubic, RLQ TTP. Will evaluate for cystitis/pyelonephritis, renal colic, bilary colic/ cholecystitis, early appendicitis, gastritis/gastroenteritis also consider GERD , PUD, MSK. 07/13/19 14:31 No hydronephrosis POCUS 07/13/19 15:34 CT shows possible appendicitis Will hydrate and obtain CTAP with PO/IV contrast 07/13/19 17:24 Patient assessed @ bedside; tolerated PO contrast; requests nausea medication; pain well controlled Dr. Ryan discussed patient with Dr. Ryan - requests 2-1/[address] (to CT @ 1830); will sign out to night team for further evaluation. Discharge - Discharge Information Problems reviewed: Yes Clinical Impression/Diagnosis: Abdominal pain - Follow up/Referral Referrals: Rosio Briceño MD [Primary Care Provider] - - Patient Discharge Instructions - Post Discharge Activity
--- NOTE | 2019-07-13 09:58 | PDOC ---
History of Present Illness - General Chief Complaint: Pain Stated Complaint: ABDOMINAL PAIN Time Seen by Provider: 07/13/19 09:46 Past History - Past Medical History Allergies/Adverse Reactions: Allergies Allergy/AdvReac Type Severity Reaction Status Date / Time codeine AdvReac Verified 07/13/19 09:39 Home Medications: Ambulatory Orders Vilazodone Hydrochloride [Viibryd -] 30 mg PO DAILY 05/01/19 Cariprazine HCl [Vraylar] 4.5 mg PO HS 05/02/19 Cyanocobalamin [Vitamin B12 -] 1,000 mcg PO DAILY #30 tablet 05/02/19 Gabapentin [Neurontin -] 300 mg PO BID #60 capsule 05/02/19 clonazePAM [Clonazepam] 1 mg PO DAILY 05/02/19 clonazePAM [Clonazepam] 2 mg PO HS 05/02/19 COPD: No GI Disorders: Yes (IBS) Disorders: Yes (interstitial cystitis) - Psycho Social/Smoking Cessation Hx Smoking History: Never smoked Have you smoked in the past 12 months: Yes Number of Cigarettes Smoked Daily: 10 Hx Alcohol Use: No Drug/Substance Use Hx: No Substance Use Type: None Hx Substance Use Treatment: No *Physical Exam - Vital Signs Last Vital Signs Temp Pulse Resp BP Pulse Ox 98 F 64 18 122/86 98 07/13/19 09:35 07/13/19 09:35 07/13/19 09:35 07/13/19 09:35 07/13/19 09:35 ED Treatment Course - LABORATORY CBC & Chemistry Diagram: 07/13/19 10:05 07/13/19 11:50 Medical Decision Making - Medical Decision Making 07/13/19 14:36 HPI: 54yo F hx MS, migraines, depression, fibromyalgia, RLS, APL antibodies, diarrhea -type IBS, and interstitial cystitis (treated with bladder installations in past ) presents from home with 3wks worsening constant cramping-type diffuse abdominal pain worse on R side radiating to R flank associated with nausea, dry heaves, and decreased appetite, consistent with prior flairs of interstitial cystitis, as well as 1 day of genital burning and cottage cheese-like white thick vaginal discharge consistent with prior yeast infections. Tried tylenol, ibuprofen, and zofran without improvement, last used all yesterday. Treated by panel machine operator/uro Dr Bryson at [facility] for interstitial cystitis x years, usually gets bladder installation treatment eveyr 4 weeks but last did in January because was feeling better. Next appt this Sunday but felt couldn't wait due to pain. Denies urgency, frequency, dysuria, hematuria, fever, vomiting. Endorses hx of yeast infections treated with PO fluconazole in past, feels like has another so applied monostat topically last night for irritation but no suppository or PO. Endorses unprotected sex with 1 partner, denies STI testing recently, endorses hx +HPV, denies rashes or lesions, endorses wanting GC testing. Endorses NB diarrhea at baseline due to IBS, no change recently. Forced menopause 15yrs ago. Denies vaginal bleeding. Denies hx kidney stones or issues. Denies abdominal surgeries, recent abx, recent travel, sick contacts, recent illness. PCP - Navarro at [facility] ROS: Constitutional: Negative for chills, fever, fatigue, diaphoresis. HENT: Negative for sore throat, rhinorrhea, congestion. Eyes: Negative for visual disturbance. Respiratory: Negative for shortness of breath, cough, and wheezing. Cardiovascular: Negative for chest pain, palpitations, and leg swelling. Gastrointestinal: Positive for abdominal pain, nausea, dry heaves, decreased appetite, chronic diarrhea. Negative for blood in stool, constipation. Genitourinary: Positive for R flank pain, vaginal discharge, vaginal irritation. Negative for dysuria, and hematuria. Musculoskeletal: Negative for myalgias, back pain, and neck pain. Skin: Negative for rash. Neurological: Negative for light-headedness, dizziness, vertigo, syncope, weakness, numbness and headaches. Psychiatric/Behavioral: Negative for behavioral problems and confusion. PE: Gen: Alert, NAD, uncomfortable-appearing in position HEENT: PERRL, EOMI, MMM, NCAT. No conjunctival pallor. Sclera are non-icteric. CV: Regular rate and rhythm. No murmurs, rubs, or gallops. PULM: No resp distress. CTAB, no wheezes, rales, or rhonchi. ABD: soft, ND, diffuse abdominal TTP worst in RLQ with voluntary guarding, R CVA tenderness, no rebound tenderness PELVIC: External genitalia unremarkable. No blood seen with speculum exam. Moderate thick white discharge in vaginal vault. Cervix visualized and is unremarkable (closed in appearance without any protruding material, discharge easily wipes from os). Bimanual exam without cervical motion tenderness, adnexal tenderness, or any masses appreciated. BACK: No TTP of c/t/l-spine. No step-offs or deformities. MSK: No bony deformities. 2+ pulses in all extremities. NEURO: AAOx3. PERRL. No gross CN deficits. Strength and sensation grossly intact throughout. EXTREMITIES: No cyanosis. No clubbing. No edema. No calf tenderness. PSYCH: Normal mood and thought pattern. SKIN: Warm and dry. Normal capillary refill. No rashes. No jaundice. MDM: 54yo F hx MS, migraines, depression, fibromyalgia, RLS, APL antibodies, diarrhea -type IBS, and interstitial cystitis (treated with bladder installations in past ) presents from home with 3wks worsening constant cramping-type diffuse abdominal pain worse on R side radiating to R flank associated with nausea, dry heaves, and decreased appetite, consistent with prior flairs of interstitial cystitis, as well as 1 day of genital burning and cottage cheese-like white thick vaginal discharge consistent with prior yeast infections. Hemodynamically stable, afebrile, diffuse abdominal TTP worst in RLQ with voluntary guarding, R CVA tenderness, white thick discharge in vaginal vault. Ddx: presentation most consistent with known interstitial cystitis. Also consider GI pathologies (appendicitis, pancreatitis, diverticulitis, gastritis, gastroenteritis, SBO), urinary/renal pathologies (UTI/pyelo, kidney stones), genital/pelvic pathologies (yeast infection, STI, gonorrhea, chlamydia, trich, BV, PID, ovarian torsion, ovarian cyst/rupture), metabolic derangement, anemia. -Fluconazole for presumed yeast infection -CBC,CMP,Mg,Phos,Lipase,UA/UC,GC -CTAP w/IV contrast -IVF -POCUS US: no stones or hydronephrosis seen, bladder empty -Pain and nausea management: ofirmev (pain improved s/p ofirmev), Reglan, Zofran -Dispo: pending w/u and pain management 07/13/19 15:37 Labs reviewed. UA notable for 2+ blood which is baseline per pt. No other concerning findings. CTAP reviewed: abnormalities in RLQ. Lack of oral contrast does limit evaluation but there appears to be a mildly thickened appendix and adjacent to appendix is a fluid-filled structure either a loop of the right colon or cecum or collection. Therefore acute appendicits cannot be excluded and should be further evaluated. In addition the unopacified small bowel in the midabdomen and LLQ demonstrates circumferential mural thickening. This should also be further evaluated for small bowel pathology. -Consult placed to Dr Ortiz -Pt started drinking PO contrast -2nd L NS -EKG 07/13/19 16:[address] Ortiz's answering service 2nd time. Dr Ortiz still in surgery, will call back after. 07/13/19 17:[address] Ortiz on phone, per Dr Ortiz: -CT at 1830 (2.5hrs after finished PO contrast) -NO antibiotics -NO narcotics -Continuous IVF -Will see pt as soon as can -pre-op labs ordered 07/13/19 19:03 EKG reviewed: NSR, 65bpm, normal axis, normal intervals, no e/o acute ischemia Pt signed out to Dr Gutierrez and night team. Discharge - Discharge Information Problems reviewed: Yes Clinical Impression/Diagnosis: Interstitial cystitis Abdominal pain Qualifiers: Abdominal location: generalized Qualified Code(s): R10.84 - Generalized abdominal pain Condition: Stable Disposition: HOME - Follow up/Referral Referrals: Rosio Briceño MD [Primary Care Provider] - - Patient Discharge Instructions Patient Printed Discharge Instructions: Interstitial Cystitis (Alternative Therapy), DI for Interstitial Cystitis Additional Instructions: Today you were evaluated for abdominal pain. Your CT scans do not show any disease such as appendicitis that needs immediate treatment at this time. We gave you medications for pain and you felt better. At home, please follow-up with your urologist at [facility] as scheduled. You can take Tylenol as instructed on the bottle for pain, as your pain improved when you received an IV medication similar to Tylenol in the emergency room. If you experience worsening nausea, vomiting, abdominal pain, constipation, diarrhea, fever, chills, chest pain, or any other new or concerning symptoms, please return to the emergency room. - Post Discharge Activity Work/Back to School Note: Back to Work
[2019-07-13] MEDS ORDERED: ACETAMINOPHEN 1000 MG/100 ML VIAL (NON FORMULARY) IVPB ONE ×2 (10:12→16:42)
[2019-07-13] MEDS ORDERED: ONDANSETRON 4 MG/2 ML VIAL IVPUSH ONE (10:12)
[2019-07-13] MEDS ORDERED: SODIUM CHLORIDE 0.9% 500 ML INFUS.BAG IV ONE ×3 (10:12→17:37)
[2019-07-13 10:22] LABS: EPI CELLS 1.5 /HPF (0-5/HPF); HYALINE CASTS 5 /lpf (0-8); URINE APPEARANCE CLEAR; URINE BACTERIA 12.5 /hpf (NEGATIVE); URINE BILIRUBIN NEGATIVE (NEGATIVE); URINE COLOR YELLOW; URINE GLUCOSE (UA) NEGATIVE (NEGATIVE); URINE KETONE 2+ (NEGATIVE); URINE LEUK ESTERASE NEGATIVE (NEGATIVE); URINE NITRITE NEGATIVE (NEGATIVE); URINE PROTEIN TRACE (NEGATIVE); URINE RBC 4 /hpf (0-4); URINE UROBILINOGEN 0.2 mg/dL (0.2-1.0); URINE WBC 2 /hpf (0-5)
[2019-07-13] MEDS ORDERED: ONDANSETRON 4 MG/2 ML VIAL ONE (10:23)
[2019-07-13] MEDS ORDERED: ACETAMINOPHEN INJECTION 100 ML IVPB ONE ×2 (10:23→16:43)
[2019-07-13 10:39] LABS: BASO % 1.1 % (0-2.0); HEMATOCRIT 45.4 % (32.4-45.2); HEMOGLOBIN 15.7 GM/dL (10.7-15.3); LYMPH % 43.9 % (8-40); MCH 33.6 pg (25.7-33.7); MCHC 34.5 g/dl (32.0-36.0); MEAN CELL VOLUME 97.5 fl (80-96); MEAN PLT VOLUME 8.4 fl (7.5-11.1); MONO % 6.6 % (3.8-10.2); NEUT % 48.4 % (42.8-82.8); PLATELET COUNT 322 K/MM3 (134-434); RBC 4.66 M/mm3 (3.60-5.2); RDW 13.8 % (11.6-15.6); WHITE BLOOD COUNT 8.1 K/mm3 (4.0-10.0)
[2019-07-13] MEDS ORDERED: METOCLOPRAMIDE HCL INJECTION 10 MG/2 ML VIAL IVPB ONE (10:45)
--- NOTE | 2019-07-13 10:54 | PDOC ---
Attending Attestation - Resident Resident Name: Licha Ryan - ED Attending Attestation I have performed the following: I have examined & evaluated the patient, The case was reviewed & discussed with the resident, I agree w/resident's findings & plan - HPI HPI: 07/13/19 10:51 54 year old female with a past medical history of Multiple sclerosis, migraines , depression, fibromyalgia, interstitial cystitis, RLS, IBS, HPV presenting with lower abdominal pain, a/w nausea and chronic diarrhea, nonbloody Bladder insufflation treatment q4w, last treatment 01/2019 Last 3 weeks, lower abdominal pain, worse on right side, radiating to right flank, intermittently initially now more constant. been takingTylenol and zofran without effect no fever/vomiting. no urgency or frequency. last night started having vaginal burning, cottage cheese discharge. she has tried Monistat, applied to the outer area, not improving. 07/15/19 11:12 - Physicial Exam PE: 07/13/19 10:51 Agree with the resident's HPI and PE as documented in the electronic medical record. NAD, well appearing, EOMI, PERRL, nl conjunctiva, anicteric; neck supple. lungs clear, RRR, abdomen soft +suprapubic/RLQ tenderness. no rebound, guarding. Back nontender. [place] x4, no focal neuro deficits. No peripheral edema. normal color for ethnicity, WWP. pelvic exam with the resident, chaperoned by me. normal external genitalia, + white mucoid discharge on the cervix, removable. no lesions, clear vaginal vault , no CMT, no adnexal tenderness. Smooth and pink cervix, closed. 07/13/19 11:40 - Medical Decision Making 07/13/19 10:52 Vital Signs Temp Pulse Resp BP Pulse Ox 98 F 64 18 122/86 98 07/13/19 09:35 07/13/19 09:35 07/13/19 09:35 07/13/19 09:35 07/13/19 09:35 VS reviewed, wnl, reassuring. no fever, no systemic findings. DDx abdominal pain: Renal colic, biliary colic, metabolic/electrolyte derangements. GERD, PUD, esophageal spasm, pancreatitis, hepatitis, constipation , colitis, gastroenteritis, cholecystitis, UTI, pyelonephritis, ileus, SBO, medication side effect, hernia, appendicitis, diverticulitis, mesenteric ischemia. msk strain, mesenteric adenitis, psoas abscess. no pelvic pain, with unremarkable pelvic exam so doubt ovarian torsion/cyst. 07/13/19 11:40 Laboratory results are within normal limits, electrolytes and creatinine are also normal. LFTs lipase are normal. UA negative for infection preliminarily there is 2+ ketones and blood. bedside renal sono neg for hydro, empty uterus as pt just urinated. will treat as vaginal candidiasis with the sx and discharge std testing sent with the urine, no swabs available in the department. CT a/p, given Right flank/RLQ pain, r/o appy.. vs intra abdominal infection/ inflammation. 07/13/19 16:04 CT abdomen pelvis with IV contrast where there are abnormality seen in the right lower quadrant, some limitations due to lack of oral contrast. Appears to be mildly thickened appendix with fluid-filled structure either loop of bowel of the colon, cecum, or fluid collection. Acute appendicitis cannot be excluded. IV contrast was done without oral contrast as patient did not meet criteria for oral contrast. No history of inflammatory bowel disease, BMI is appropriate for IV contrast only, no history of bowel manipulation or resection or bypass surgeries. We will start p.o. contrast to better elucidate right lower quadrant, time of transit 2 hours. We will call surgery for consultation for possible acute appendicitis. resident discussed case with Dr Ortiz. pt completed PO contrast at 4pm, pending CT at 6pm. redosed analgesia for tylenol and reglan now for nausea 07/13/19 17:[address] with PO contrast to eval for appy, s/o to Dr Alonso. Heart Score/ECG Review #1 ECG reviewed & interpreted by me at: 15:50 General ECG Interpretation: Sinus Rhythm, Normal Rate, Normal Intervals 07/13/19 16:06 Normal sinus rhythm at 65 bpm
[2019-07-13] MEDS ORDERED: METOCLOPRAMIDE HCL INJECTION 10 MG/2 ML VIAL ONE ×2 (10:55→17:25)
[2019-07-13] MEDS ORDERED: FLUCONAZOLE 150 MG TABLET PO ONE ×2 (12:52→12:58)
[2019-07-13 13:09] LABS: ALBUMIN 3.3 g/dl (3.4-5.0); BILIRUBIN,TOTAL 0.5 mg/dL (0.2-1); CALCIUM 8.2 mg/dL (8.5-10.1); CREATININE 0.6 mg/dL (0.55-1.3); MAGNESIUM 1.9 mg/dL (1.8-2.4); POTASSIUM 3.9 mmol/L (3.5-5.1); TOT PROT 5.8 g/dl (6.4-8.2)
[2019-07-13] MEDS ORDERED: SODIUM CHLORIDE 1,000 ML IV SCH (15:45)
[2019-07-13] MEDS ORDERED: METOCLOPRAMIDE HCL INJECTION 10 MG/2 ML VIAL IVPUSH ONE (17:21)
[2019-07-13 18:38] LABS: INR 0.93 (0.83-1.09)
[2019-07-13 19:00] VITALS: BP 130/80; PULSE 68; TEMP 97.7
--- NOTE | 2019-07-13 19:27 | PDOC ---
*Physical Exam - Vital Signs Last Vital Signs Temp Pulse Resp BP Pulse Ox 97.7 F 68 20 130/80 97 07/13/19 18:40 07/13/19 18:40 07/13/19 18:40 07/13/19 18:40 07/13/19 18:40 - Physical Exam General Appearance: Yes: Nourished, Appropriately Dressed. No: Apparent Distress HEENT: positive: EOMI, TANA, Normal Voice. negative: Scleral Icterus (R), Scleral Icterus (L) Neck: positive: Normal Thyroid, Supple, Lymphadenopathy (R). negative: Tender, Rigid, Lymphadenopathy (L) Respiratory/Chest: positive: Lungs Clear, Normal Breath Sounds. negative: Chest Tender, Respiratory Distress, Accessory Muscle Use, Crackles, Rales, Rhonchi, Stridor, Wheezing Cardiovascular: positive: Regular Rhythm, Regular Rate. negative: Murmur Gastrointestinal/Abdominal: positive: Normal Bowel Sounds, Tender (diffuse lower RLQ>LLQ), Flat. negative: Organomegaly, Pulsatile Mass, Guarding, Rebound Musculoskeletal: positive: Normal Inspection. negative: CVA Tenderness, Vertebral Tenderness Extremity: positive: Normal Inspection, Normal Range of Motion. negative: Tender Integumentary: positive: Normal Color, Dry, Warm Neurologic: positive: Fully Oriented, Alert, Normal Mood/Affect ED Treatment Course - LABORATORY CBC & Chemistry Diagram: 07/13/19 10:05 07/13/19 11:50 - ADDITIONAL ORDERS Additional order review: Laboratory Results 07/13/19 07/13/19 07/13/19 17:55 17:55 11:50 PT with INR 11.00 INR 0.93 PTT (Actin FS) 32.0 Sodium 142 Potassium 3.9 Chloride 110 H Carbon Dioxide 23 Anion Gap 9 BUN 14.0 Creatinine 0.6 Est GFR (CKD-EPI)AfAm 118.09 Est GFR (CKD-EPI)NonAf 101.89 Random Glucose 87 Calcium 8.2 L Phosphorus 3.0 Magnesium 1.9 Total Bilirubin 0.5 AST 10 L ALT 11 L Alkaline Phosphatase 64 Total Protein 5.8 L Albumin 3.3 L Lipase 87 Urine Color Urine Appearance Urine pH Ur Specific [place] Urine Protein Urine Glucose (UA) Urine Ketones Urine Blood Urine Nitrite Urine Bilirubin Urine Urobilinogen Ur Leukocyte Esterase Urine WBC (Auto) Urine RBC (Auto) Urine Casts (Auto) U Epithel Cells (Auto) Urine Bacteria (Auto) Blood Type A POSITIVE Antibody Screen Negative 07/13/19 07/13/19 10:05 10:05 PT with INR INR PTT (Actin FS) Sodium Cancelled Potassium Cancelled Chloride Cancelled Carbon Dioxide Cancelled Anion Gap Cancelled BUN Cancelled Creatinine Cancelled Est GFR (CKD-EPI)AfAm Cancelled Est GFR (CKD-EPI)NonAf Cancelled Random Glucose Cancelled Calcium Cancelled Phosphorus Cancelled Magnesium Cancelled Total Bilirubin Cancelled AST Cancelled ALT Cancelled Alkaline Phosphatase Cancelled Total Protein Cancelled Albumin Cancelled Lipase Cancelled Urine Color Yellow Urine Appearance Clear Urine pH 5.0 Ur Specific Commerce 1.023 Urine Protein Trace Urine Glucose (UA) Negative Urine Ketones 2+ H Urine Blood 2+ H Urine Nitrite Negative Urine Bilirubin Negative Urine Urobilinogen 0.2 Ur Leukocyte Esterase Negative Urine WBC (Auto) 2 Urine RBC (Auto) 4 Urine Casts (Auto) 5 U Epithel Cells (Auto) 1.5 Urine Bacteria (Auto) 12.5 Blood Type Antibody Screen 07/13/19 10:05 RBC 4.66 MCV 97.5 H MCHC 34.5 RDW 13.8 MPV 8.4 D Neutrophils % 48.4 D Lymphocytes % 43.9 H Monocytes % 6.6 Eosinophils % 0.0 D Basophils % 1.1 - Medications Given in the ED: ED Medications Discontinued Medications Generic Name Dose Route Start Last Admin Trade Name Freq PRN Reason Stop Dose Admin Acetaminophen 1,000 mg 07/13/19 10:12 07/13/19 10:25 Ofirmev Injection - IVPB 07/13/19 10:13 1,000 mg ONCE ONE Administration Acetaminophen 1,000 mg 07/13/19 16:42 07/13/19 16:49 Ofirmev Injection - IVPB 07/13/19 16:43 1,000 mg ONCE ONE Administration Fluconazole 150 mg 07/13/19 12:52 07/13/19 13:01 Fluconazole PO 07/13/19 12:53 150 mg ONCE ONE Administration Metoclopramide HCl 10 mg 07/13/19 10:45 07/13/19 11:00 Reglan Injection - IVPB 07/13/19 10:46 10 mg ONCE ONE Administration Metoclopramide HCl 10 mg 07/13/19 17:21 07/13/19 17:37 Reglan Injection - IVPUSH 07/13/19 17:22 10 mg ONCE ONE Administration Ondansetron HCl 4 mg 07/13/19 10:12 07/13/19 10:45 Zofran Injection IVPUSH 07/13/19 10:13 4 mg ONCE ONE Administration Sodium Chloride 1,000 ml 07/13/19 10:12 07/13/19 10:15 Normal Saline - IV 07/13/19 10:13 1,000 ml ONCE ONE Administration Sodium Chloride 1,000 ml 07/13/19 15:29 07/13/19 15:35 Normal Saline - IV 07/13/19 15:30 Not Given ONCE ONE Sodium Chloride 1,000 ml 07/13/19 17:37 07/13/19 17:45 Normal Saline - IV 07/13/19 17:38 1,000 ml ONCE ONE Administration Medical Decision Making - Medical Decision Making 07/13/19 19:24 Signed out to me by Dr. Ryan. Chronic interstitial cystitis, here for worsening pain before next uro/kaiawhina appointment at [facility], has diffuse abd pain with worsening RLQ. Got CT w/contrast showing normal bladder but abnormalities in RLQ, need PO contrast to evaluate. Dr. Ortiz consulted, continuous IVF and no Abx or narcotics. Repeat CT shows no appendicitis with PO contrast. Will re-evaluate abdominal pain after Ofirmev. 07/13/19 19:40 Mild abd pain, no acute abdomen, will give Toradol and discharge home with urology f/u. Discharge - Discharge Information Problems reviewed: Yes Clinical Impression/Diagnosis: Interstitial cystitis Abdominal pain Qualifiers: Abdominal location: generalized Qualified Code(s): R10.84 - Generalized abdominal pain Condition: Stable Disposition: HOME - Follow up/Referral Referrals: Rosio Briceño MD [Primary Care Provider] - - Patient Discharge Instructions Patient Printed Discharge Instructions: Interstitial Cystitis (Alternative Therapy), DI for Interstitial Cystitis Additional Instructions: Today you were evaluated for abdominal pain. Your CT scans do not show any disease such as appendicitis that needs immediate treatment at this time. We gave you medications for pain and you felt better. At home, please follow-up with your urologist at [facility] as scheduled. You can take Tylenol as instructed on the bottle for pain, as your pain improved when you received an IV medication similar to Tylenol in the emergency room. If you experience worsening nausea, vomiting, abdominal pain, constipation, diarrhea, fever, chills, chest pain, or any other new or concerning symptoms, please return to the emergency room. - Post Discharge Activity Work/Back to School Note: Back to Work
[2019-07-13] MEDS ORDERED: KETOROLAC TROMETHAMINE 30 MG/1 ML VIAL IVPUSH ONE (19:29)
--- NOTE | 2019-07-13 19:31 | PDOC ---
*Physical Exam - Vital Signs Last Vital Signs Temp Pulse Resp BP Pulse Ox 97.7 F 68 20 130/80 97 07/13/19 18:40 07/13/19 18:40 07/13/19 18:40 07/13/19 18:40 07/13/19 18:40 ED Treatment Course - LABORATORY CBC & Chemistry Diagram: 07/13/19 10:05 07/13/19 11:50 - ADDITIONAL ORDERS Additional order review: Laboratory Results 07/13/19 07/13/19 07/13/19 17:55 17:55 11:50 PT with INR 11.00 INR 0.93 PTT (Actin FS) 32.0 Sodium 142 Potassium 3.9 Chloride 110 H Carbon Dioxide 23 Anion Gap 9 BUN 14.0 Creatinine 0.6 Est GFR (CKD-EPI)AfAm 118.09 Est GFR (CKD-EPI)NonAf 101.89 Random Glucose 87 Calcium 8.2 L Phosphorus 3.0 Magnesium 1.9 Total Bilirubin 0.5 AST 10 L ALT 11 L Alkaline Phosphatase 64 Total Protein 5.8 L Albumin 3.3 L Lipase 87 Urine Color Urine Appearance Urine pH Ur Specific [place] Urine Protein Urine Glucose (UA) Urine Ketones Urine Blood Urine Nitrite Urine Bilirubin Urine Urobilinogen Ur Leukocyte Esterase Urine WBC (Auto) Urine RBC (Auto) Urine Casts (Auto) U Epithel Cells (Auto) Urine Bacteria (Auto) Blood Type A POSITIVE Antibody Screen Negative 07/13/19 07/13/19 10:05 10:05 PT with INR INR PTT (Actin FS) Sodium Cancelled Potassium Cancelled Chloride Cancelled Carbon Dioxide Cancelled Anion Gap Cancelled BUN Cancelled Creatinine Cancelled Est GFR (CKD-EPI)AfAm Cancelled Est GFR (CKD-EPI)NonAf Cancelled Random Glucose Cancelled Calcium Cancelled Phosphorus Cancelled Magnesium Cancelled Total Bilirubin Cancelled AST Cancelled ALT Cancelled Alkaline Phosphatase Cancelled Total Protein Cancelled Albumin Cancelled Lipase Cancelled Urine Color Yellow Urine Appearance Clear Urine pH 5.0 Ur Specific [place] 1.023 Urine Protein Trace Urine Glucose (UA) Negative Urine Ketones 2+ H Urine Blood 2+ H Urine Nitrite Negative Urine Bilirubin Negative Urine Urobilinogen 0.2 Ur Leukocyte Esterase Negative Urine WBC (Auto) 2 Urine RBC (Auto) 4 Urine Casts (Auto) 5 U Epithel Cells (Auto) 1.5 Urine Bacteria (Auto) 12.5 Blood Type Antibody Screen 07/13/19 10:05 RBC 4.66 MCV 97.5 H MCHC 34.5 RDW 13.8 MPV 8.4 D Neutrophils % 48.4 D Lymphocytes % 43.9 H Monocytes % 6.6 Eosinophils % 0.0 D Basophils % 1.1 - Medications Given in the ED: ED Medications Discontinued Medications Generic Name Dose Route Start Last Admin Trade Name Beka PRN Reason Stop Dose Admin Acetaminophen 1,000 mg 07/13/19 10:12 07/13/19 10:25 Ofirmev Injection - IVPB 07/13/19 10:13 1,000 mg ONCE ONE Administration Acetaminophen 1,000 mg 07/13/19 16:42 07/13/19 16:49 Ofirmev Injection - IVPB 07/13/19 16:43 1,000 mg ONCE ONE Administration Fluconazole 150 mg 07/13/19 12:52 07/13/19 13:01 Fluconazole PO 07/13/19 12:53 150 mg ONCE ONE Administration Metoclopramide HCl 10 mg 07/13/19 10:45 07/13/19 11:00 Reglan Injection - IVPB 07/13/19 10:46 10 mg ONCE ONE Administration Metoclopramide HCl 10 mg 07/13/19 17:21 07/13/19 17:37 Reglan Injection - IVPUSH 07/13/19 17:22 10 mg ONCE ONE Administration Ondansetron HCl 4 mg 07/13/19 10:12 07/13/19 10:45 Zofran Injection IVPUSH 07/13/19 10:13 4 mg ONCE ONE Administration Sodium Chloride 1,000 ml 07/13/19 10:12 07/13/19 10:15 Normal Saline - IV 07/13/19 10:13 1,000 ml ONCE ONE Administration Sodium Chloride 1,000 ml 07/13/19 15:29 07/13/19 15:35 Normal Saline - IV 07/13/19 15:30 Not Given ONCE ONE Sodium Chloride 1,000 ml 07/13/19 17:37 07/13/19 17:45 Normal Saline - IV 07/13/19 17:38 1,000 ml ONCE ONE Administration Medical Decision Making - Medical Decision Making 07/13/19 19:30 Pt seen by myself; I received her on signout. She has a hx of interstitial cystitis, she is overdue for a medication insertion into her bladder and she is scheduled for the procedure in 3 days. She has no other complaints at this time. She has no fever and no rebound and no guarding. She will be discharged after a dose of toradol. 07/13/19 19:32 Patient Name: BEATRIS GOTTLIEB THIS IS A PRELIMINARY REPORT FROM [facility] DATE OF SERVICE: 2019-07-13 18:35:15 IMAGES: [id number] EXAM: ABDOMEN \T\ PELVIS CT with both oral and IV contrast. One or more of the following dose reduction techniques was utilized: Automated exposure control, adjustment of the mA and or kVp according to patient's size, use of an iterative reconstruction technique. CTDIvol(mGy) = 0.09, 0.09, 6.10 Total DLP (mGycm) = 295.7 CONTRAST: Excretion of IV contrast is evident in the kidneys. No dose or type of contrast given. Contrast is also evident in the bowel. HISTORY: Appendicitis. 54-year-old female. COMPARISON: None. FINDINGS: Cardiac silhouette is normal in appearance. Lung bases are clear. Uniform attenuation and enhancement is seen throughout the liver, spleen and pancreas. No ductal dilatation, mass or cystic change. Normal gallbladder is present in the right upper quadrant. No adrenal masses. Good excretion of IV contrast by both kidneys is present without hydronephrosis, mass or cystic change. No retroperitoneal adenopathy or fibrosis. Stomach, small bowel and colon all demonstrate gas or positive contrast within them. No evidence of bowel wall thickening. No acute inflammatory changes the right or left lower quadrant. No evidence of obstruction or ileus. Large amount retained stool seen throughout the colon. Pelvic CT shows the appendix in the right lower quadrant to be normal in appearance. A few diverticula are seen in the sigmoid and left colon. No acute inflammatory changes in the true pelvis. No pelvic adenopathy or free fluid in the true pelvis. Urinary bladder has contrast within it and is relatively decompressed. No evidence of distal ureterolithiasis or ureteral dilatation. The perivesicular and perirectal fat is well preserved. No significant bone or surrounding soft tissue abnormality. IMPRESSION Normal CT of the abdomen and pelvis. No evidence of bowel obstruction or ileus. No acute inflammatory changes in the right or left lower quadrant. The appendix is well seen in the right lower quadrant and extends along the right pelvic sidewall. It contains oral contrast within it. Pt's urologists told her to go to the [facility], as that is where they are located and where they will be treating her interstitial cystitis. I asked he to follow up there in the event that the pain is intractable or if she feels worse. Pt is feeling better at this time and she will be discharged home with a sick note for work. 07/13/19 19:57 Discharge - Discharge Information Problems reviewed: Yes Clinical Impression/Diagnosis: Interstitial cystitis Abdominal pain Qualifiers: Abdominal location: generalized Qualified Code(s): R10.84 - Generalized abdominal pain Condition: Stable Disposition: HOME - Admission No - Follow up/Referral Referrals: Rosio Briceño MD [Primary Care Provider] - - Patient Discharge Instructions Patient Printed Discharge Instructions: Interstitial Cystitis (Alternative Therapy), DI for Interstitial Cystitis Additional Instructions: Today you were evaluated for abdominal pain. Your CT scans do not show any disease such as appendicitis that needs immediate treatment at this time. We gave you medications for pain and you felt better. At home, please follow-up with your urologist at [facility] as scheduled. You can take Tylenol as instructed on the bottle for pain, as your pain improved when you received an IV medication similar to Tylenol in the emergency room. If you experience worsening nausea, vomiting, abdominal pain, constipation, diarrhea, fever, chills, chest pain, or any other new or concerning symptoms, please return to the emergency room. - Post Discharge Activity Work/Back to School Note: Back to Work
[2019-07-13] MEDS ORDERED: KETOROLAC TROMETHAMINE 30 MG/1 ML VIAL ONE (19:34)
--- NOTE | 2019-07-14 09:25 | EKG ---
Test Reason : Blood Pressure : / mmHG Vent. Rate : 065 BPM Atrial Rate : 065 BPM P-R Int : 172 ms QRS Dur : 078 ms QT Int : 422 ms P-R-T Axes : 063 089 072 degrees QTc Int : 438 ms NORMAL SINUS RHYTHM NORMAL ECG WHEN COMPARED WITH ECG OF 01-MAY-2019 16:36, NO SIGNIFICANT CHANGE WAS FOUND Confirmed by Gregorio Garcia ([id number]) on 07/14/2019 9:25:38 AM Referred By: Confirmed By:Gregorio Garcia
== END 2019-07-13 19:55 | disposition home or self-care (01) ==
LOC: JER 09:34
PROC: 3E033NZ Introduction of Analgesics, Hypnotics, Sedatives into Peripheral Vein, Percutaneous Approach (ICD-10-PCS; principal; 2019-07-13)
PROC: 3E0333Z Introduction of Anti-inflammatory into Peripheral Vein, Percutaneous Approach (ICD-10-PCS; 2019-07-13)
PROC: 3E033GC Introduction of Other Therapeutic Substance into Peripheral Vein, Percutaneous Approach (ICD-10-PCS; 2019-07-13)
PROC: 3E033GC Introduction of Other Therapeutic Substance into Peripheral Vein, Percutaneous Approach (ICD-10-PCS; 2019-07-13)
PROC: BT4JZZZ Ultrasonography of Kidneys and Bladder (ICD-10-PCS; 2019-07-13)
DX: N30.10 Interstitial cystitis (chronic) without hematuria (principal); G35 Multiple sclerosis; G43.909 Migraine, unspecified, not intractable, without status migrainosus; M79.7 Fibromyalgia; K58.0 Irritable bowel syndrome with diarrhea; Z86.19 Personal history of other infectious and parasitic diseases; Z72.51 High risk heterosexual behavior; Z88.5 Allergy status to narcotic agent
CPT/HCPCS: 36415; 74176-TC; 74177-TC; 76775; 80053; 81003; 83690; 83735; 84100; 85025; 85610; 85730; 86850; 86900; 86901; 87086; 87491; 87591; 87661; 93005; 93010; 99285-25; J0131; J7030; Q9967

== ENCOUNTER 2021-05-29 16:59 | Emergency (ER) | payer OTHER ==
[2021-05-29] MEDS ORDERED: ACETAMINOPHEN 325 MG TABLET (FP) PO ONE (17:01)
[2021-05-29] MEDS ORDERED: ACETAMINOPHEN 325 MG TABLET (FP) ONE (17:14)
[2021-05-29 17:26] VITALS: TEMP 98.7; BMI 24.4
[2021-05-29 17:53] VITALS: BP 118/84; PULSE 118
[2021-05-31 12:07] LABS: SARS-CoV-2 NAA Not Detected (Not Detected)
== END 2021-05-29 18:22 | disposition home or self-care (01) ==
LOC: FER 16:59
DX: M54.50 Low back pain, unspecified (principal)
CPT/HCPCS: 93005; 99283-25; C9803; U0003; U0005